=== PATIENT | male | born 1970 | race Hispanic/Latino ===

== ENCOUNTER 2019-09-04 11:44 | Inpatient (IN) | payer OTHER ==
[2019-09-04] MEDS ORDERED: AZITHROMYCIN 500MG+NS 250ML 250 ML IV ONE (12:18)
[2019-09-04] MEDS ORDERED: CEFTRIAXONE SODIUM 1 GM ONE (12:19)
[2019-09-04] MEDS ORDERED: SODIUM CHLORIDE 0.9% 1000ML 1,000 ML IV ONE (12:20)
[2019-09-04] MEDS ORDERED: SODIUM CHLORIDE 0.9% 100 ML IV ONE (12:41)
[2019-09-04 12:48] VITALS: PULSE 92; RESP 18
[2019-09-04 13:30] VITALS: PULSE 69; RESP 18
[2019-09-04] MEDS ORDERED: ACETAMINOPHEN 325 MG TAB PO PRN ×2 (15:15)
[2019-09-04] MEDS ORDERED: DOXYCYCLINE 100MG+NS 250ML IV SCH (15:15)
[2019-09-04] MEDS ORDERED: HYDRALAZINE HCL 20 MG/ML VIAL IV PRN (15:15)
[2019-09-04] MEDS ORDERED: ERGOCALCIFEROL (VITAMIN D2) 50,000 UNIT CAPSULE PO ONE (15:15)
[2019-09-04] MEDS ORDERED: ONDANSETRON HCL 4 MG/2 ML VIAL IV PRN (15:15)
[2019-09-04 15:20] VITALS: PULSE 73; RESP 18
[2019-09-04] MEDS ORDERED: DOXYCYCLINE 100MG+NS 250ML 250 ML IV ONE (17:44)
[2019-09-04] MEDS ORDERED: ERGOCALCIFEROL (VITAMIN D2) 50,000 UNIT CAPSULE ONE (17:45)
[2019-09-04] MEDS: ALBUTEROL SULFATE 0.083% 2.5 MG/3 ML INH IH SCH (18:00)
[2019-09-04] MEDS ORDERED: BUDESONIDE 0.5 MG/2 ML INH IH ONE (18:03)
[2019-09-04] MEDS ORDERED: METHYLPREDNISOLONE SOD SUCC 40MG/ML 1ML ONE (20:10)
[2019-09-04] MEDS ORDERED: FAMOTIDINE/PF 20 MG/2 ML VIAL IV ONE (20:10)
[2019-09-04 20:21] VITALS: PULSE 76; RESP 20
[2019-09-04] MEDS ORDERED: ENOXAPARIN SODIUM 40 MG/0.4 ML SYRINGE SQ ONE (22:10)
[2019-09-05] VITALS (7 sets, daily range): BP systolic 131; BP diastolic 72; PULSE 57–67; RESP 20–22; TEMP 97.4
[2019-09-05] MEDS ORDERED: CEFTRIAXONE SODIUM 1 GM ONE ×2 (01:40→13:20)
[2019-09-05] MEDS ORDERED: DOXYCYCLINE HYCLATE 100 MG TABLET PO ONE (03:48)
[2019-09-05] MEDS: ALBUTEROL SULFATE 0.083% 2.5 MG/3 ML INH IH SCH ×4 (06:00→18:00)
[2019-09-05] MEDS ORDERED: METHYLPREDNISOLONE SOD SUCC 40MG/ML 1ML ONE ×3 (08:09→23:30)
[2019-09-05] MEDS ORDERED: ZINC SULFATE 220 CAPSULE ONE (08:10)
[2019-09-05] MEDS ORDERED: FAMOTIDINE/PF 20 MG/2 ML VIAL IV ONE ×2 (08:11→23:31)
[2019-09-05] MEDS: ENOXAPARIN SODIUM 40 MG/0.4 ML SYRINGE SQ SCH (09:00)
[2019-09-05] MEDS: ASCORBIC ACID 500 MG TAB PO SCH (09:00)
[2019-09-05] MEDS: ZINC SULFATE 220 CAPSULE PO SCH (09:00)
[2019-09-05] MEDS ORDERED: POTASSIUM CHLORIDE 10% ELIXIR 20 MEQ/15 ML UDCUP ONE ×2 (14:59→16:17)
[2019-09-05] MEDS ORDERED: ACETAMINOPHEN 325 MG TAB ONE (15:05)
[2019-09-05] MEDS ORDERED: DOXYCYCLINE 100MG+NS 250ML 250 ML IV ONE (16:17)
[2019-09-05] MEDS ORDERED: POTASSIUM CHLORIDE 20MEQ/100ML 100 ML IV PRN (16:30)
[2019-09-05] MEDS ORDERED: LIDOCAINE HCL-MPF 1% 2ML VIAL IV PRN (16:30)
--- NOTE | 2019-09-05 18:23 | NUR ---
INITIAL: Pt remains in ED. Call placed to [facility] per rafael to discuss dcp. Per Junior(pt's sister) prior to admission pt was living alone in a detached room behind her parents home. Pt was previously independent w ambulation and ADLs. 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 [facility] dcp at this time is for pt to return home. CM to continue to follow and wait for Md recommendations. Addendum: 09/05/19 at 1825 by MARGARETTE POLLACK Amended: Links added.
[2019-09-05] MEDS: INSULIN R PO SS1/2 SQ SCH (21:00)
[2019-09-05] MEDS ORDERED: POTASSIUM CHLORIDE 20 MEQ ERTAB PO ONE (23:30)
[2019-09-05] MEDS: METHYLPREDNISOLONE SOD SUCC 40MG/ML 1ML IVP SCH (23:41)
[2019-09-05] MEDS: FAMOTIDINE/PF 20 MG/2 ML VIAL IV SCH (23:41)
[2019-09-06 00:07] VITALS: PULSE 81; RESP 20
[2019-09-06 00:55] VITALS: BP 152/80; PULSE 62; RESP 22; TEMP 97.5
[2019-09-06 03:31] VITALS: PULSE 55; RESP 22
[2019-09-06] MEDS ORDERED: DOXYCYCLINE 100MG+NS 250ML 250 ML IV ONE ×3 (03:59→20:29)
[2019-09-06] MEDS ORDERED: CEFTRIAXONE SODIUM 1 GM ONE ×3 (04:00→20:28)
[2019-09-06] MEDS: DOXYCYCLINE 100MG+NS 250ML 250 ML IV SCH ×2 (04:04→15:14)
[2019-09-06] MEDS: CEFTRIAXONE SODIUM 1 GM IVP SCH ×2 (04:04→15:14)
[2019-09-06] MEDS: ALBUTEROL SULFATE 0.083% 2.5 MG/3 ML INH IH SCH ×4 (06:00→18:00)
[2019-09-06] MEDS: INSULIN R PO SS1/2 SQ SCH ×4 (06:16→21:00)
[2019-09-06] MEDS: PHARMACY COMMUNICATION**REMDESIVIR ORDER MISC SCH ×3 (06:45→22:45)
[2019-09-06 07:05] VITALS: PULSE 74; RESP 20
[2019-09-06] MEDS ORDERED: POTASSIUM CHLORIDE 20MEQ/100ML 100 ML IV PRN (07:30)
[2019-09-06] MEDS ORDERED: POTASSIUM CHLORIDE 10% ELIXIR 20 MEQ/15 ML UDCUP PO PRN (07:30)
[2019-09-06] MEDS ORDERED: LIDOCAINE HCL-MPF 1% 2ML VIAL IV PRN (07:30)
[2019-09-06] MEDS: ZINC SULFATE 220 CAPSULE PO SCH (09:00)
[2019-09-06] MEDS: ENOXAPARIN SODIUM 40 MG/0.4 ML SYRINGE SQ SCH (09:00)
[2019-09-06] MEDS: ASCORBIC ACID 500 MG TAB PO SCH (09:00)
[2019-09-06] MEDS ORDERED: ASCORBIC ACID 500 MG TAB ONE (09:56)
[2019-09-06] MEDS ORDERED: METHYLPREDNISOLONE SOD SUCC 40MG/ML 1ML ONE ×2 (09:56→13:17)
[2019-09-06] MEDS ORDERED: ZINC SULFATE 220 CAPSULE ONE (09:57)
[2019-09-06] MEDS ORDERED: ENOXAPARIN SODIUM 40 MG/0.4 ML SYRINGE SQ ONE (09:57)
[2019-09-06] MEDS ORDERED: FAMOTIDINE/PF 20 MG/2 ML VIAL IV ONE ×2 (09:58→20:27)
[2019-09-06] MEDS: FAMOTIDINE/PF 20 MG/2 ML VIAL IV SCH ×2 (10:01→21:13)
[2019-09-06] MEDS: METHYLPREDNISOLONE SOD SUCC 40MG/ML 1ML IVP SCH ×3 (10:01→21:14)
[2019-09-06] MEDS ORDERED: HYDRALAZINE HCL 20 MG/ML VIAL IV PRN (12:15)
[2019-09-06] MEDS ORDERED: ACETAMINOPHEN 325 MG TAB ONE (16:18)
--- NOTE | 2019-09-06 18:35 | NUR ---
Pt alert, pt showed no signs and symptoms of distress, pt took NRB mask off and dropped down from 100% to 90-92% on RA, pt got a headache from breathing harder than normal, tylenol given, pt placed his mask back on sat at 96-99%, will continue to monitor pt, all medications was given and signed off on the ER sheet used as the medication list, medication list was placed in pt chart
[2019-09-06 19:08] VITALS: PULSE 54; RESP 17
[2019-09-06 20:05] VITALS: BP 143/72; PULSE 63; RESP 19; TEMP 97.9
[2019-09-06] MEDS ORDERED: METHYLPREDNISOLONE SOD SUCC 125MG/2ML VIAL ONE (20:27)
[2019-09-06] MEDS ORDERED: REMDESIVIR (INVESTIGATIONAL) 100 MG in SODIUM CHLORIDE 0.9% 250 ML IV SCH (21:30)
[2019-09-07 00:40] VITALS: BP 148/74; PULSE 61; RESP 19; TEMP 97.8
[2019-09-07 04:11] VITALS: BP 138/67; PULSE 64; RESP 18; TEMP 97.5
[2019-09-07] MEDS: CEFTRIAXONE SODIUM 1 GM IVP SCH (04:11)
[2019-09-07] MEDS: DOXYCYCLINE 100MG+NS 250ML 250 ML IV SCH (04:11)
[2019-09-07] MEDS: ALBUTEROL SULFATE 0.083% 2.5 MG/3 ML INH IH SCH ×2 (05:14)
[2019-09-07] MEDS: PHARMACY COMMUNICATION**REMDESIVIR ORDER MISC SCH (06:10)
[2019-09-07] MEDS: INSULIN R PO SS1/2 SQ SCH (06:47)
[2019-09-07] MEDS ORDERED: POTASSIUM CHLORIDE 20 MEQ ERTAB PO ONE ×2 (06:57→11:00)
[2019-09-07] MEDS: POTASSIUM CHLORIDE 20 MEQ ERTAB PO PRN ×2 (07:00→07:01)
[2019-09-07] MEDS ORDERED: ASCORBIC ACID 500 MG TAB ONE (10:59)
[2019-09-07] MEDS ORDERED: METHYLPREDNISOLONE SOD SUCC 40MG/ML 1ML ONE ×2 (10:59→13:36)
[2019-09-07] MEDS ORDERED: FAMOTIDINE/PF 20 MG/2 ML VIAL IV ONE (11:00)
[2019-09-07] MEDS ORDERED: ZINC SULFATE 220 CAPSULE ONE (11:00)
[2019-09-07] MEDS ORDERED: ENOXAPARIN SODIUM 40 MG/0.4 ML SYRINGE SQ ONE (11:00)
[2019-09-07] MEDS ORDERED: SODIUM CHLORIDE 0.9% 100 ML IV ONE (13:37)
[2019-09-07] MEDS ORDERED: CEFTRIAXONE SODIUM 1 GM ONE (13:37)
[2019-09-07] MEDS ORDERED: POTASSIUM CHLORIDE 20 MEQ ERTAB PO SCH (14:15)
--- NOTE | 2019-09-07 14:25 | NUR ---
phone call family updated
== END 2019-09-07 15:30 | disposition home or self-care (01) | DRG 177 ==
LOC: EDH 11:44 → EDHIP 14:10
PROVIDERS: ADMIT Internal Medicine; ATTEND Internal Medicine
PROC: 5A09357 Assistance with Respiratory Ventilation, Less than 24 Consecutive Hours, Continuous Positive Airway Pressure (ICD-10-PCS; principal; 2019-09-06)
PROC: 5A09357 Assistance with Respiratory Ventilation, Less than 24 Consecutive Hours, Continuous Positive Airway Pressure (ICD-10-PCS; 2019-09-07)
DX: U07.1 COVID-19 (principal); J96.01 Acute respiratory failure with hypoxia; J12.89 Other viral pneumonia; I10 Essential (primary) hypertension; E11.9 Type 2 diabetes mellitus without complications; E78.5 Hyperlipidemia, unspecified; E87.6 Hypokalemia; J44.9 Chronic obstructive pulmonary disease, unspecified; Z99.81 Dependence on supplemental oxygen; Z88.5 Allergy status to narcotic agent